=== PATIENT | female | born 1955 | race Caucasian/White ===

== ENCOUNTER → 2023-07-02 16:17 | Outpatient (REF) | payer MEDICARE, SELFPAY | LOC: WDC 16:17 | PROVIDERS: ATTENDING PHYSICIAN Internal Medicine | DX: Z12.31 Encounter for screening mammogram for malignant neoplasm of breast (principal); R92.2 Inconclusive mammogram | CPT/HCPCS: 77063; 77067 ==

== ENCOUNTER → 2023-08-02 12:55 | Outpatient (REF) | payer MEDICARE, SELFPAY | LOC: HWRAD 12:55 | PROVIDERS: ATTENDING PHYSICIAN Physician Assistant; FAMILY PHYSICIAN Internal Medicine | DX: E04.1 Nontoxic single thyroid nodule (principal) | CPT/HCPCS: 76536 ==

== ENCOUNTER → 2024-06-20 13:15 | Outpatient (REF) | payer MEDICARE, SELFPAY | LOC: PAVMRI 13:15 | PROVIDERS: ATTENDING PHYSICIAN Physician Assistant Surgical; FAMILY PHYSICIAN Internal Medicine | DX: M54.12 Radiculopathy, cervical region (principal) | CPT/HCPCS: 72141 ==

== ENCOUNTER → 2024-06-30 15:42 | Outpatient (REF) | payer MEDICARE, SELFPAY | LOC: WDC 15:42 | PROVIDERS: ATTENDING PHYSICIAN Internal Medicine | DX: Z12.31 Encounter for screening mammogram for malignant neoplasm of breast (principal) | CPT/HCPCS: 77063; 77067 ==

== ENCOUNTER → 2024-08-17 06:32 | Outpatient (REF) | payer MEDICARE, SELFPAY | LOC: MRI 3T 06:32 | PROVIDERS: ATTENDING PHYSICIAN Pain Medicine Interventional Pain Medicine; FAMILY PHYSICIAN Internal Medicine | DX: M54.16 Radiculopathy, lumbar region (principal) | CPT/HCPCS: 72148 ==